=== PATIENT | female | born 1990 | race Caucasian/White ===

== ENCOUNTER 2025-01-12 10:59 | Outpatient (CLI) | payer BC, SELFPAY ==
[2025-01-14 04:16] LABS: HPV Source Cervical
[2025-01-26 09:33] LABS: Pap Test Screened Manually Done
== END 2025-01-12 11:00 | disposition home or self-care (01) ==
PROVIDERS: Visit Provider Obstetrics & Gynecology
DX: E05.90 Thyrotoxicosis, unspecified without thyrotoxic crisis or storm (principal); N97.9 Female infertility, unspecified; Z12.4 Encounter for screening for malignant neoplasm of cervix; Z11.51 Encounter for screening for human papillomavirus (HPV)
CPT/HCPCS: 83520; 84146; 84443; 87624; 87625; 88141; 88142; 88175

== ENCOUNTER 2025-01-17 16:03 | Outpatient (CLI) | payer BC, SELFPAY | END 2025-01-17 16:04 | disposition home or self-care (01) | LOC: NFLDREF 01-25 14:03 | PROVIDERS: Visit Provider Obstetrics & Gynecology | DX: N97.9 Female infertility, unspecified (principal) | CPT/HCPCS: 84144 ==

== ENCOUNTER 2025-01-26 07:47 | Outpatient (CLI) | payer BC, SELFPAY | END 2025-01-26 07:48 | disposition home or self-care (01) | LOC: NFLDREF 01-30 15:57 | PROVIDERS: Visit Provider Obstetrics & Gynecology | DX: N97.9 Female infertility, unspecified (principal) | CPT/HCPCS: 82670; 83001 ==

== ENCOUNTER 2025-02-02 09:54 | Outpatient (CLI) | payer BC, SELFPAY ==
--- NOTE | 2025-02-02 10:15 | CRLHL7_ITS ---
For Patients: As a result of the Century Cures Act, medical imaging exams and procedure reports are released immediately into your electronic medical record. You may view this report before your referring provider. If you have questions, please contact your health care provider. Indication: Female infertility, unspecified Technique: Routine hysterosalpingogram. Fluoroscopic time 29 seconds. IMPRESSION: Endometrial canal appears normal without filling defect. Normal patency of the fallopian tubes with spillage into the peritoneum. Normal exam. Dictated by Cm Sinclair MD @ 02/06/2025 10:34:33 AM (Electronically Signed)
--- NOTE | 2025-02-02 10:57 | PM.PROC ---
Procedure Note Time Seen by Provider: 10:30 Date Seen: 02/02/25 Date of procedure: 02/02/25 Will [facility] bill your pro fee for this procedure?: Yes Procedure: PREPROCEDURE DIAGNOSIS: Infertility POSTPROCEDURE DIAGNOSIS: 1. Infertility 2. Immediate fill and spill of both fallopian tubes, endometrium appears normal NAME OF PROCEDURE: Hysterosalpingogram. ANESTHESIA: None. COMPLICATIONS: None. PROCEDURE: After obtaining verbal consent, the patient was placed in the dorsal lithotomy position on the x-ray table. An open-sided bivalve speculum was introduced into the vagina and the cervix easily visualized. The cervix and vagina were then prepped with Betadine. [The anterior lip of the cervix was grasped with a single-tooth tenaculum for traction.] Os binder/cervical dilator used: [Yes/No]. A balloon tipped double-lumen catheter was then gently inserted through the cervical opening into the uterine cavity to the level of the fundus. The balloon was insufflated with 3 mL of air. The speculum was removed. The patient was repositioned in the supine position, covered, and the radiologist was called to the room. A hysterosalpingogram was then performed. When the hysterosalpingogram was 1st performed most of the contrast fluid was extravasated into the vaginal canal suggesting that the catheter had fallen out of the uterine canal. The speculum was replaced and the catheter readvanced into the endometrium. The speculum was then removed and the hysterosalpingogram performed a 2nd time and was successful. A total of 5 cc of Optiray 300 water soluble contrast dye was injected through the double-lumen catheter under moderate pressure (2nd attempt). There was immediate fill of the uterine cavity to the cornua [and immediate fill of both fallopian tubes and free spillage of dye on both sides] The balloon was deflated. The catheter was removed. The patient tolerated the procedure well, though she did have moderate cramping discomfort during and just after the procedure. She was discharged to home in stable condition. The results of the HSG were reviewed with the patient: Normal. Patient already has an appointment scheduled with Dr. Agustin for follow-up. Surgeon: aKlani [place] Condition: stable
== END 2025-02-02 09:55 | disposition home or self-care (01) ==
LOC: RAD 09:55
PROVIDERS: Visit Provider Obstetrics & Gynecology
DX: N97.9 Female infertility, unspecified (principal)
CPT/HCPCS: 58340; 74740; A4649; Q9967